=== PATIENT | female | born 1960 | race Caucasian/White ===

== ENCOUNTER 2016-11-05 08:49 | Outpatient (CLI) ==
[2015-09-03 17:29] VITALS: BMI 43.9
[2016-11-05 09:10] LABS: BASOPHILS % (AUTO) 0.2 % (0.0-3.0); EOSINOPHILS # (AUTO) 0.1 K/ul (0.0-0.7); EOSINOPHILS % (AUTO) 0.6 % (0.0-7.0); HEMATOCRIT 41.8 % (37.0-47.0); HEMOGLOBIN 13.9 g/dl (12.0-16.0); IMMATURE GRANULOCYTE % (AUTO) 0.4 % (0.0-5.0); LYMPHOCYTES # (AUTO) 1.6 K/uL (0.60-3.4); MEAN CORPUSCULAR HEMOGLOBIN 29.3 pg (27.0-31.0); MEAN CORPUSCULAR HGB CONC 33.3 (31.8-35.4); MEAN CORPUSCULAR VOLUME 88.2 fl (81.0-99.0); MONOCYTES # (AUTO) 0.5 K/uL (0.4-2.0); MONOCYTES % (AUTO) 6.2 (0-10); NEUTROPHILS # (AUTO) 6.3 K/ul (2.0-6.9); NEUTROPHILS % (AUTO) 73.6; PLATELET COUNT 217 10^3/uL (140-440); RED BLOOD COUNT 4.74 10^6/ul (4.20-5.40); WHITE BLOOD COUNT 8.52 K/ul (4.6-10.2)
[2016-11-05 09:28] LABS: ALBUMIN 3.5 g/dL (3.4-5.0); ALBUMIN/GLOBULIN RATIO 0.88; ANION GAP 12.2; BILIRUBIN,TOTAL 0.46 mg/dL (0.00-1.20); BUN/CREATININE RATIO 8.25; CALCIUM 9.6 mg/dL (8.2-10.2); CHOL/HDL RATIO 3.8 (4.5-5.5); CREATININE 1.09 mg/dL (0.60-1.30); POTASSIUM 3.2 mmol/L (3.5-5.10); TOTAL PROTEIN 7.5 g/dL (6.4-8.2)
== END 2016-11-05 08:50 | disposition home or self-care (01) ==
LOC: LAB 08:49
PROVIDERS: ATTEND Nurse Practitioner Family
DX: I10 Essential (primary) hypertension (principal); E78.5 Hyperlipidemia, unspecified
CPT/HCPCS: 36415; 80053; 80061; 85025

== ENCOUNTER 2016-11-19 08:48 | Outpatient (CLI) ==
[2015-09-03 17:29] VITALS: BMI 43.9
== END 2016-11-19 08:49 | disposition home or self-care (01) ==
LOC: LAB 08:48
PROVIDERS: ATTEND Nurse Practitioner Family
DX: E87.6 Hypokalemia (principal)
CPT/HCPCS: 36415; 84132

== ENCOUNTER 2016-11-28 10:28 | Outpatient (CLI) ==
[2015-09-03 17:29] VITALS: BMI 43.9
--- NOTE | 2016-11-30 07:29 | MAMMO ---
EXAM: Digital screening mammogram HISTORY: Annual screening mammogram COMPARISON: Mammogram 03/01/2015 and 11/17/2013 FINDINGS: Bilateral CC and MLO views of the breasts were performed digitally and demonstrate scatte red fibroglandular breast density (25 - 50%). Nodular parenchyma in the right breast is mildly worse princess since previous examination and is located approximately 5.1 cm from the nipple with the largest area measuring approximately 0.9 cm in diameter. This is central within the right breast. This was not present on 2014 mammogram. The left mammogram is relatively clear. IMPRESSION: Right breast worsening nodular parenchyma in the central right breast. RECOMMENDATION: Right breast diagnostic mammogram and potential ultrasound BIRADS category 0: Needs further evaluation.
== END 2016-11-28 10:29 | disposition home or self-care (01) ==
LOC: RAD 10:28
PROVIDERS: ATTEND Nurse Practitioner Family
DX: Z12.31 Encounter for screening mammogram for malignant neoplasm of breast (principal)

== ENCOUNTER 2016-12-07 08:56 | Outpatient (CLI) ==
[2015-09-03 17:29] VITALS: BMI 43.9
--- NOTE | 2016-12-07 10:02 | US ---
EXAM: Right breast ultrasound. History: Right breast asymmetry. Comparison: Right diagnostic mammogram 12/07/2016 Technique: Multiple sonographic images through the right breast were obtained. Color duplex Dopple r was used to interrogate vascular flow. Findings: No masses, cysts or fluid collections identified. Impression: Although no sonographic abnormalities are identified, recommend 6-month follow-up right mammogram to document stability of the probably benign right mammographic asymmetry. BIRADS 3
--- NOTE | 2016-12-10 08:25 | MAMMO ---
EXAM: Right digital diagnostic mammogram History: Right breast nodules. Comparison: Bilateral mammogram 11/28/2016 Findings: Right breast density is fatty. Spot compression views of the right breast in the MLO and CC projections confirm the anterior central right breast asymmetry. There are no suspicious microca lcifications. Impression: Indeterminate right breast asymmetry. Recommend further evaluation with right breast u ltrasound. BIRADS 0
== END 2016-12-07 08:57 | disposition home or self-care (01) ==
LOC: RAD 08:56
PROVIDERS: ATTEND Nurse Practitioner Family
DX: N63 Unspecified lump in breast (principal)

== ENCOUNTER 2017-05-23 12:30 | Outpatient (CLI) ==
[2015-09-03 17:29] VITALS: BMI 43.9
[2017-05-23 13:17] LABS: ALBUMIN 3.7 g/dL (3.4-5.0); ALBUMIN/GLOBULIN RATIO 0.88; ANION GAP 13.3; BILIRUBIN,TOTAL 0.51 mg/dL (0.00-1.20); BUN/CREATININE RATIO 5.78; CALCIUM 10.4 mg/dL (8.2-10.2); CHOL/HDL RATIO 3.9 (4.5-5.5); CREATININE 1.21 mg/dL (0.60-1.30); POTASSIUM 4.3 mmol/L (3.5-5.10); TOTAL PROTEIN 7.9 g/dL (6.4-8.2)
[2017-05-23 13:25] LABS: EOSINOPHILS % (AUTO) 0.6 % (0.0-7.0); HEMATOCRIT 42.6 % (37.0-47.0); LYMPHOCYTES % (AUTO) 14.3 (10.0-50.0); MEAN CORPUSCULAR HGB CONC 32.9 (31.8-35.4); MEAN CORPUSCULAR VOLUME 90.1 fl (81.0-99.0); MONOCYTES % (AUTO) 5.3 (0-10); RED BLOOD COUNT 4.73 10^6/ul (4.20-5.40)
[2017-05-23 13:26] LABS: BASOPHILS % (AUTO) 0.3 % (0.0-3.0); EOSINOPHILS # (AUTO) 0.1 K/ul (0.0-0.7); IMMATURE GRANULOCYTE % (AUTO) 0.5 % (0.0-5.0); LYMPHOCYTES # (AUTO) 1.4 K/uL (0.60-3.4); MONOCYTES # (AUTO) 0.5 K/uL (0.4-2.0); NEUTROPHILS # (AUTO) 7.7 K/ul (2.0-6.9)
[2017-05-23 13:27] LABS: PLATELET COUNT 217 10^3/uL (140-440)
== END 2017-05-23 12:31 | disposition home or self-care (01) ==
LOC: LAB 12:30
PROVIDERS: ATTEND Nurse Practitioner Family
DX: E78.5 Hyperlipidemia, unspecified (principal); I10 Essential (primary) hypertension; R53.83 Other fatigue
CPT/HCPCS: 36415; 80053; 80061; 82306; 84443; 85025

== ENCOUNTER 2017-05-27 10:30 | Outpatient (CLI) ==
[2015-09-03 17:29] VITALS: BMI 43.9
[2017-05-27 10:49] LABS: RETICULOCYTE % 1.62 %
[2017-05-27 11:47] LABS: FERRITIN 129.18 ng/mL (4.63-204.00)
== END 2017-05-27 10:31 | disposition home or self-care (01) ==
LOC: LAB 10:30
PROVIDERS: ATTEND Nurse Practitioner Family
DX: R89.9 Unspecified abnormal finding in specimens from other organs, systems and tissues (principal)
CPT/HCPCS: 36415; 82607; 82728; 82746; 83540; 83550; 84466; 85045

== ENCOUNTER 2017-06-17 08:26 | Outpatient (CLI) ==
[2015-09-03 17:29] VITALS: BMI 43.9
--- NOTE | 2017-06-17 09:15 | MAMMO ---
EXAM: Right digital diagnostic mammogram (2-D and 3-D) History: A 6-month follow-up right breast asymmetry. Comparison: Right diagnostic mammogram 12/07/2016 Findings: MLO and CC views of bilateral breasts demonstrate predominately fatty replaced breast pare nchyma. CAD was reviewed by the radiologist. Tomosynthesis was performed. No significant interval brayn nge in the right breast asymmetries. No developing masses and no suspicious microcalcifications. Impression: Probably benign right breast asymmetries. Recommend 6-month follow-up mammogram to docu ment stability. BIRADS 3
== END 2017-06-17 08:27 | disposition home or self-care (01) ==
LOC: RAD 08:26
PROVIDERS: ATTEND Nurse Practitioner Family
DX: N64.89 Other specified disorders of breast (principal); Z09 Encounter for follow-up examination after completed treatment for conditions other than malignant neoplasm

== ENCOUNTER 2017-10-01 14:03 | Outpatient (CLI) ==
[2015-09-03 17:29] VITALS: BMI 43.9
== END 2017-10-01 14:04 | disposition home or self-care (01) ==
LOC: LAB 14:03
PROVIDERS: ATTEND Nurse Practitioner Family
DX: E78.5 Hyperlipidemia, unspecified (principal); I10 Essential (primary) hypertension; E55.9 Vitamin D deficiency, unspecified
CPT/HCPCS: 36415; 80053; 80061; 82306; 85025

== ENCOUNTER 2018-04-01 11:31 | Outpatient (CLI) ==
[2015-09-03 17:29] VITALS: BMI 43.9
== END 2018-04-01 11:32 | disposition home or self-care (01) ==
LOC: RHC-LAB 11:31
PROVIDERS: ATTEND Nurse Practitioner Family
DX: I10 Essential (primary) hypertension (principal); E78.5 Hyperlipidemia, unspecified; E55.9 Vitamin D deficiency, unspecified
CPT/HCPCS: 36415; 80053; 80061; 82306; 84443; 85025

== ENCOUNTER 2018-09-30 08:03 | Outpatient (CLI) ==
[2015-09-03 17:29] VITALS: BMI 43.9
== END 2018-09-30 08:04 | disposition home or self-care (01) ==
LOC: RHC-LAB 08:03
PROVIDERS: ATTEND Nurse Practitioner Family
DX: I10 Essential (primary) hypertension (principal)
CPT/HCPCS: 36415; 80053; 80061; 84443; 85025

== ENCOUNTER 2019-02-02 18:04 | Emergency (ER) ==
[2019-02-02 18:12] VITALS: BP 116/83; TEMP 99.6; BMI 40.2
--- NOTE | 2019-02-02 18:24 | ED.PDOC ---
General ED Provider: Dr. MCKENZIE ERICKSON Chief Complaint: Fall Stated Complaint: fall injury left knee and elbow denied head and neck injury no other associated injuries offered but were asked Time Seen by Physician: 18:10 (seen with ade and staci) Mode of Arrival: Walk-In Information Source: Patient Exam Limitations: No limitations Primary Care Provider: YENNIFER SEVILLA Nursing and Triage Documentation Reviewed and Agree: Yes Does patient meet sepsis criteria?: No System Inflammatory Response Syndrome: Not Applicable Sepsis Protocol: For patient's 13 years and over: Temp is 96.8 and below OR 101 and greater Pulse >90 BPM Resp >20/minute Acutely Altered Mental Status Are patient's symptoms suggestive of a new infection, such as: -Pneumonia -Skin, Soft Tissue -Endocarditis -UTI -Bone, Joint Infection -Implantable Device -Acute Abdominal Infection -Wound Infection -Meningitis -Blood Stream Catheter Infection -Unknown Trauma/Injury Complaint Exam - Trauma Complaint/Exam Location of Pain or Injury: Reports: LUE (elbow), LLE (knee). Denies: Head, Scalp, Face, Neck, RUE, Chest, Abdomen, Back, RLE Mechanism of Injury: Reports: Fall ( tripped over a tree stump) Onset/Duration: today Symptoms Are: Still present Timing of Treatment: Immediate Initial Severity: Moderate Current Severity: Moderate Character: Reports: Aching Aggravating: Reports: None Alleviating: Reports: None Associated Signs and Symptoms: Denies: LOC, Confusion, Memory loss, Lethargy, Vomiting, Bleeding, Bruising, Swelling, Extremity disuse, Painful respiration, Hoarseness, Dysphagia, Hemoptysis, Significant blood loss Related History: Reports: Similar episode Penetrating Injury Risk Factors: Reports: None Related Surgical History: Reports: None Nexus Low Risk Criteria: No post-midline CS tender, No evidence of intoxicat., No Altered LOC, No focal neuro deficit, No distracting injuries Glascow Coma Scale (see protocol): 15 Trauma Findings: Absent: [place] eyes, Hemotympanum, Nasal deformity, Dental tenderness, Dental injury, Dental malocclusion, Neck tenderness, Neck spasm, SubQ Air, Crepitus, Airway obstructed, Trachea displaced, Labored respirations, Decreased breath sounds, Muffled heart sounds, Weak pulses, Absent pulses, Abdominal distention, Pelvic tenderness, Pelvic instability Skin Findings: Present: Normal findings Differential Diagnoses: Fracture, Sprain, Strain Review of Systems - Review Of Systems Constitutional: Reports: No symptoms Eyes: Reports: No symptoms Ears, Nose, Mouth, Throat: Reports: No symptoms Respiratory: Reports: No symptoms Cardiac: Reports: No symptoms GI: Reports: No symptoms : Reports: No symptoms Musculoskeletal: Reports: Joint pain (left knee ) Skin: Reports: No symptoms Neurological: Reports: No symptoms Endocrine: Reports: No symptoms Hematologic/Lymphatic: Reports: No symptoms All Other Systems: Reviewed and Negative Past Medical History - Past Medical History Previously Healthy: Yes Endocrine: Reports: Dyslipidemia Cardiovascular: Reports: Hypertension Respiratory: Reports: None Hematological: Reports: None Gastrointestinal: Reports: GERD Genitourinary: Reports: None Neuro/Psych: Reports: None Musculoskeletal: Reports: None Cancer: Reports: None Last Menstrual Period: na - Surgical History General Surgical History: Reports: Hysterectomy, Cholecystectomy, Tonsillectomy , Adenoidectomy - Family History Family History: Reports: Unknown - Social History Smoking Status: Former smoker Hx Substance Use: Yes Alcohol Screening: None - Immunizations Tetanus Shot up to Date: No Physical Exam - Physical Exam Appearance: Well-appearing, No pain distress, Well-nourished Eyes: DIOGO, EOMI, Conjunctiva clear ENT: Ears normal, Nose normal, Oropharynx normal Respiratory: Airway patent, Breath sounds clear, Breath sounds equal, Respirations nonlabored Cardiovascular: RRR, Pulses normal, No rub, No murmur GI/: Soft, Nontender, No masses, Bowel sounds normal, No Organomegaly Musculoskeletal: Limited ROM (elbow) Skin: Warm, Dry, Normal color Neurological: Sensation intact, Motor intact, Reflexes intact, Cranial nerves intact, Alert, Oriented Psychiatric: Affect appropriate, Mood appropriate Critical Care Note - Critical Care Note Total Time (mins): 0 Course - Course Orders, Labs, Meds: Orders Category Date Time Status BALTAZAR [ED BALTAZAR WRAP] .ONCE EMERGENCY 02/02/19 18:26 Active ELBOW, LEFT MIN 3 VIEWS Stat RADS 02/02/19 18:20 Completed KNEE, LEFT 4 VIEWS Stat RADS 02/02/19 18:21 Completed Vital Signs: Temp Pulse Resp BP Pulse Ox 02/02/19 18:05 99.6 F 62 16 116/83 98 Departure - Departure Time of Disposition: 18:10 Disposition: HOME SELF-CARE Discharge Problem: Sprain of knee Qualifiers: Encounter type: initial encounter Involved ligament of knee: unspecified ligament Laterality: left Qualified Code(s): S83.92XA - Sprain of unspecified site of left knee, initial encounter Instructions: Fall Prevention (ED), Arm Pain (ED) Condition: Good Pt referred to PMD for follow-up: Yes IPMP verified?: No Prescriptions: Hydrocodone Bit/Acetaminophen [Warner 10-325] 1 each PO Q6HR #10 tablet Allergies/Adverse Reactions: Allergies No Known Allergies Allergy (Verified 02/02/19 18:14) Home Medications: Ambulatory Orders Diphenhydramine HCl [Benadryl] 25 mg PO QID #30 capsule 09/03/15 Prednisone 20 mg PO DIRECTED #50 tablet 09/03/15 Vitamin E Mixed [Vitamin E] 400 unit PO 10/01/17 Hydrocodone Bit/Acetaminophen [Warner 10-325] 1 each PO Q6HR #10 tablet 02/02/19
--- NOTE | 2019-02-02 18:55 | DI ---
Exam: Four views of the left knee. Comparison: None available. Reason for exam: Fall. FINDINGS: No acute fracture or dislocation. There is mild narrowing of the medial joint space with spurring of the tibial spine. No unexplained calcific soft tissue density or radiopaque retained for eign body. Impression: No acute fracture or dislocation with mild degenerative disease.
--- NOTE | 2019-02-02 18:58 | DI ---
Exam: Three views of the left elbow. Comparison: None available. Reason for exam: Fall with injury. FINDINGS: No acute fracture or malalignment. The joint spaces appear well maintained. No unexplain ed calcific soft tissue density or radiopaque retained foreign body. Impression: No acute fracture or dislocation in the left elbow.
== END 2019-02-02 19:09 | disposition home or self-care (01) ==
LOC: ED 18:04
DX: S83.92XA Sprain of unspecified site of left knee, initial encounter (principal); S59.902A Unspecified injury of left elbow, initial encounter; W19.XXXA Unspecified fall, initial encounter
CPT/HCPCS: 99283

== ENCOUNTER 2019-02-10 11:00 | Outpatient (CLI) ==
--- NOTE | 2019-02-10 12:47 | DI ---
EXAM: Three views of the left elbow. History: Left elbow trauma. Comparison: Left elbow radiograph 02/02/2019 Findings: No acute fracture or dislocation. Enthesiopathy of the bilateral humeral epicondyles agai n noted. No joint effusion. No radiopaque foreign bodies. Impression: No acute osseous abnormality.
== END 2019-02-10 11:01 | disposition home or self-care (01) ==
LOC: RAD 11:00
PROVIDERS: ATTEND Nurse Practitioner Family
DX: M25.522 Pain in left elbow (principal); W19.XXXA Unspecified fall, initial encounter